=== PATIENT | female | born 1990 | race African-American/Black ===

== ENCOUNTER → 2016-08-07 09:22 | Outpatient (CLI) | payer MEDICAID ==
[2011-05-18 13:38] VITALS: BMI 36.6
== END | disposition home or self-care (01) ==
LOC: D.LAB 09:22
DX: O20.0 Threatened abortion (principal)

== ENCOUNTER 2017-03-31 06:51 | Inpatient (IN) | payer MEDICAID ==
[~2017-03-31] VITALS: Ht 154.9 cm; Wt 105.2 kg
[2017-03-31] VITALS (10 sets, daily range): BP systolic 82–134; BP diastolic 45–80; Ht 154.9 cm; Wt 105.2 kg
--- NOTE | ~2017-03-31 | DS ---
PATIENT:THOMAS GUTIERREZ :89 MEDICAL RECORD: [id number] DISCHARGE SUMMARY ADMISSION DATE: 03/31/17 DISCHARGE DATE: DATE OF ADMISSION: 03/31/2017 DATE OF DISCHARGE: 04/02/2017 ADMISSION DIAGNOSIS: undelivered at term with prior section. DISCHARGE DIAGNOSIS: Mother delivered at term. PROCEDURE: Repeat low transverse section. PRIMARY PHYSICIAN: Sarah Armenta MD DISCHARGING PHYSICIAN: Edna Andrews MD HISTORY OF PRESENT ILLNESS: See the H&P in [facility]. SUMMARY OF HOSPITALIZATION: The patient was admitted to the hospital, underwent section without difficulty. On and postop day 2, the patient is tolerating a regular diet, voiding without difficulty. The patient is ambulating without difficulties. The patient is . Discharge medications for pain will include ibuprofen, and Demerol. The patient will be followed up in 2 weeks by the primary surgeon. Standard postoperative and precautions have been reviewed. TRANSINT:[id number] Voice Confirmation ID: [id number] DOCUMENT ID: [id number] EDNA ANDREWS MD CC: [id number] DICTATION DATE: 04/02/1735 GRAPHIC ILLUSTRATOR: 04/02/17 0804 ADM IN [facility] [address] [place] [address]
[2017-03-31] MEDS ORDERED: NOVOLIN R100 U/ML SQ (07:16)
[2017-03-31 07:45] LABS: HEMATOCRIT 36.9 % (36.0-48.0); HEMOGLOBIN 12.3 g/dL (12-16); MCH 29.3 pg (26.0-34.0); MCHC 33.3 g/dL (31.0-37.0); MCV 87.9 fL (80.0-100.0); RDW 13.7 % (11.5-14.5)
[2017-03-31 07:55] LABS: PLATELET COUNT 136 10x3/uL (130-400)
--- NOTE | 2017-03-31 08:20 | NUR ---
BUMP UNDER RIGHT HIP. BABY GIRL BORN VIA CSECTION AT 0805.
--- NOTE | 2017-03-31 09:00 | NUR ---
FUNDUS IS MINDLINE UMBILICUS AND FIRM.
--- NOTE | 2017-03-31 09:10 | NUR ---
POST OP ORDERS RECEIVED FROM DR LEDEZMA. NO INTERMODAL DISPATCHER ORDERS IN SYSTEM. DR LEDEZMA ON L&D VERBAL ORDERS RECEIVED FOR DEMEROL INTERMODAL DISPATCHER 50 MG BOLUS X 1 THEN 10 MG Q 10 MINS PRN PER INTERMODAL DISPATCHER. PT STILL IN RECOVERY ROOM.
--- NOTE | 2017-03-31 09:25 | NUR ---
RECEIVED PT FROM RECOVERY ROOM. ALERT AND ORIENTED. SKIN WARM AND DRY, LUNGS CLEAR. IV NS WITH 20 UNITS PITOCIN INFUSING INTO RIGHT HAND. SALINE LOCK PRESENT IN LEFT HAND. U/U FIRM MIDLINE, RUBRA SCANT, STERISTRIPS IN PLACE OVER INCISION- CLEAN AND DRY. SMALL SUPERFICIAL LESION APPR 2CM X 1 CM NOTED TO RIGHT OF INCISION LOWER ABDOMEN. RR RN STATES IT WAS COVERED WITH DERMOBOND PER MD IN OR. MIREILLE-PAD PLACE BETWEEN INCISION AND LOW ABD. RODRIGES DRAINING DARK YELLOW URINE. ANCHORED TO RIGHT UPPER THIGH AT THIS TIME. SCD'S IN PLACE AND PLACE ON PUMP, PUMP ON. NO EDEMA, NEG HOMANS, REFLEX WNL, MOVING LE SLOWLY. ICE PACK PLACED OVER GOWN OVER LTCS INCISION. EATING ICE CHIPS WITHOUT DIFFICULY. + BS X 4. DENIES NAUSEA. 8/10 ACHING ON PAIN SCALE. INSTRUCTED THAT DEMEROL BIOMEDICAL ENGINEERING DIRECTOR WILL BE INITIATED FOR HER TO ADMINISTER HER OWN PAIN MEDICATION. VERBALIZED UNDERSTANDING. PLANS TO BREASTFEED. SIDE RAILS UP X 2, CALL LIGHT IN REACH.
--- NOTE | 2017-03-31 09:37 | NUR ---
DEMEROL BRASS PICKLER INITIATED. PT INSTRUCTED ON USE AND GIVEN BRASS PICKLER CONTROLLER. INSTRUCTED THAT ONLY SHE MAY PUSH THE BUTTON. VERBALIZED UNDERSTANDING. INSTRUCTED ON INCENTIVE SPIROMETER AND USED X 3 WITH MOD NON-PRODUCTIVE COUGH. SIDE RAILS UP, CALL LIGHT AND BRASS PICKLER CONTROLLER PLACED IN REACH. VISITORS IN ROOM. INFANT IN NURSERY.
--- NOTE | 2017-03-31 09:45 | NUR ---
U/U FIRM RUBRA SMALL. LEMON RAMPART DRINK AND FRESH WATER GIVEN. C/O THROAT FEELING DRY. DISCUSSED CAUSE AND RELIEF MEASURES. ENCOURAGED SMALL SIPS TO DECREASE CHANCE OF N&V.
--- NOTE | 2017-03-31 09:59 | NUR ---
ADMISSION HISTORY COMPLETED WITHOUT DIFFICULTY. PT SAYS SHE RECEIVED TDAP "THE SHOT WITH WHOOPING COUGH" DURING "THIS MONTH". U/U FIRM MARK SMALL, PERIPAD X 1 CHANGED.
--- NOTE | 2017-03-31 10:20 | NUR ---
U/U FIRM, MARK JOY. SAYS HER PAIN IS IMPROVED NOW 7/10 ON PAIN SCALE. DISCUSSED TORADOL TO ASSIST WITH PAIN.
--- NOTE | 2017-03-31 10:33 | NUR ---
TORADOL 30 MG GIVEN IVP FOR RELIEF OF 7/10 INCISIONAL PAIN. STATES "I NEED A NAP". LIGHTS TURNED ON LOW. ENCOURAGED TO REST AT THIS TIME. SIDE RAILS UP X 2, CALL LIGHT IN REACH AND PHYSICAL THERAPY AIDE IN REACH. VISITORS AT BEDSIDE.
--- NOTE | 2017-03-31 11:30 | NUR ---
SITTING UP IN BED WITH SLEEPING INFANT IN ARMS. SAYS HER PAIN IS IMPROVED NOW /. NO CURRENT VAGINAL BLEEDING, RODRIGES DRAINING, IV PATENT. WAITING ON CLEAR LIQUID DIET TRAY. VISITOR X 1 IN ROOM. FLANGE MACHINE OPERATOR NOT USED WITHIN LAST HOUR. SIDE RAILS UP X 2, CALL LIGHT AND FLANGE MACHINE OPERATOR WITHIN REACH. TO CALL IF ANYTHING IS NEEDED.
--- NOTE | 2017-03-31 13:37 | NUR ---
SITTING UP IN BED. NURSERY, RN IN ROOM ASSISTING WITH . NO REQUESTS AT THIS TIME.
--- NOTE | 2017-03-31 13:56 | NUR ---
INCENTIVE SPIROMETER X 3, POSITIONED TO RIGHT SIDE RUBRA SMALL, CLEAN MIREILLE-PADS X 2 ON. RODRIGES DRAINING, IV PATENT. ASSISTED TO PUT NURSING BRA ON, NURSERY RN BACK IN ROOM WITH INFANT TO ASSIST WITH . SIDE RAILS UP X 2, CALL LIGHT AND ARABIC LINGUIST CONTROLLER IN REACH. FRESH ICE WATER GIVEN. VISITORS IN ROOM.
--- NOTE | 2017-03-31 15:05 | NUR ---
DR ANDREWS WAS ON L&D V.O. RECEIVED. POSITIONED PT TO HIGHFOWLERS FOR COMFORT. JELLO AND FRESH WATER GIVEN. VISITORS AND INFANT IN ROOM. CALL LIGHT AND TIRE MECHANIC CONTROLLER IN REACH. DENIES NEEDING ANYTHING ELSE AT THIS TIME. ALERT AND NON-DROWSY. SCDS IN PLACE AND OPERATING. IV PATENT AND RODRIGES DRAINING. U/1 FIRM MIDLINE.
--- NOTE | 2017-03-31 16:00 | NUR ---
SITTING UP IN BED. ASSISTED TO POSITION TO LEFT SIDE. INCENTIVE SPIROMENTER USED X 3. AND VISITORS IN ROOM. FRESH WATER GIVEN. NO ADDITIONAL REQUESTS. SIDERAILS UP X 2, CALL LIGHT AND FUR PLUCKER IN REACH. INFANT AND VISITORS IN ROOM. ICE PACK IN PLACE, SCD'S ON AND WORKING. IV PATENT, ZAHIRA PATENT.
--- NOTE | 2017-03-31 17:11 | NUR ---
SITTING UP IN BED NURSERY RN AT BEDSIDE ASSISTING WITH . NO REQUESTS AT PRESENT.
--- NOTE | 2017-03-31 18:15 | NUR ---
SITTING UP IN BED. INCENTIVE SPIROMETER X 3 USED WITH MOD COUGH, NONPRODUCTIVE. ENCOURAGED TO CONTINUE PO HYDRATION. PERICARE WITH WARM WASHCLOTH. CLEAN CHUX AND PERIPAD X 2 ON. U/1 FIRM MIDLINE, RUBRA SMALL TO MOD ON PAD. NO CLOTS. RODRIGES DRAINING, IV PATENT NS WITH 20 U PITOCIN AT 125 ML/HR. SAYS HER PAIN HAS BEEN AVERAGING ABOUT A 3. "IT GOES UP TO A THREE WHEN I MOVE." FRESH ICE PACK TO ABDOMEN, CUP OF ICE GIVEN PER REQUEST. FOB, VISITORS AND INFANT IN ROOM. SIDE RAILS UP X 2, CALL LIGHT AND MANAGER FILM IN REACH. PT AWARE THAT IV/RODRIGES/MANAGER FILM WILL BE DC'D AT APPROX 1999. ENCOURAGED TO SHOWER THIS PM. VERBALIZED UNDERSTANDING.
--- NOTE | 2017-03-31 19:10 | NUR ---
PT. AWAKE AND ORIENTED. FOB AND CHILD IN ROOM. SKIN WARM AND DRY. BREATH SOUNDS CLEAR AND BOWEL SOUNDS AUDIBLE. IV INFUSING IN RT. HAND AT 125CC/HR. IV SALINE LOCK NOTED IN LT HAND. ABD.INCISION CLEAN AND DRY. LOCHIA RUBRA SCANT TO MOD. SCDS ON AND FUNCTIONAL. RODRIGES PATENT AND DRAINING. POC DISCUSSED WITH PT. PT. STATES UNDERSTANDING. AIRPLANE MECHANIC AT BEDSIDE FOR USE. PT. FILLING OUT PAPERWORK FOR NBN. PT. WITH QUESTIONS AND WOULD LIKE TO TALK WITH MEDICAL RECORDS. INFORMED THIS NURSE THAT HER LEGAL NAME IS "ANDRZEJ" AND SHE DESIRES THE INFANT'S LAST NAME TO BE SAME. INFORMED WOULD CONTACT MEDICAL RECORDS FOR ANSWERS TO HER QUESTIONS.
--- NOTE | 2017-03-31 19:35 | NUR ---
ALYSSA MENESES, DIRECTOR OF HEALTH INFORMATION MANAGEMENT CALLED UNIT AND INFORMED OF PT. QUESTIONS. MS. MENESES STATES THAT PT. SHOULD RESIGN CONSENTS WITH HER LEGAL NAME OF "ANDRZEJ" AND ALSO DATE ENTRY FOR DATE THAT SHE SIGNED. TRANSFERRED Arabella MENESES INTO PT. ROOM TO ANSWER PT. QUESTIONS.
--- NOTE | 2017-03-31 19:45 | NUR ---
ADDITIONAL CERTIFICATE PAPERS TAKEN TO PT. REQUESTED. PT. REPORTS THAT Arabella MENESES HAD ANSWERED ALL HER QUESTIONS. VISITORS AT BEDSIDE. INFANT BACK TO NURSERY PER NURSERY STAFF.
--- NOTE | 2017-03-31 20:30 | NUR ---
IVF dc'd. IV to R hand dc'd with tip intact. Bandage applied to site. Ramos cath dc'd with tip intact. Apprx 300 ml clear yellow urine emptied from ramos bag. Pt tolerated well. Explained to pt to call when she feels the urge to void so nurse can assist OOB to bathroom. Pt verbalizes understanding. No other questions voiced. Family in room. C/L in reach. Bed low. SR upx2.
--- NOTE | 2017-03-31 21:25 | NUR ---
ATTEMPTING TO BREASTFEED WITH THE ASSISTANCE OF NURSERY NURSE. FAMILY IN ROOM WITH PT. AND SMALL CHILD. HOB ELEVATED 45 DEGREES.
--- NOTE | 2017-03-31 22:00 | NUR ---
PT. REPORTS URGE TO VOID. UP TO BATHROOM WITH MINIMAL ASSISTANCE. VOIDED 500CC. MIREILLE PADS AND PANTIES APPLIED. BACK TO SIT ON SIDE OF BED AWAITING TRANSFER TO [facility]. INCENTIVE SPIROMETER USED AND ABLE TO ACCOMPLISH UP TO 1500. 3-4 ATTEMPTS MADE. LOCHIA MAGDYRA MOD. AMBULATED WITH STEADY GAIT.
--- NOTE | 2017-03-31 22:20 | NUR ---
TO 1257 VIA WHEELCHAIR FROM 1278. ORIENTED TO ROOM, CALL SYSTEM, BED CONTROLS AND THERMOSTAT. SIDE RAILS UP X 2. CALL LIGHT WITHIN REACH. SCDS REAPPLIED AND PUMP ON AND FUNCTIONAL. NBN STAFF IN ROOM TO ASSIST WITH . FOB, PT'S MOTHER AND PT'S SON IN ROOM AT PRESENT.
--- NOTE | 2017-03-31 22:25 | NUR ---
PT. INSTRUCTED TO CALL FOR ASSISTANCE NEXT TIME SHE NEEDED UP TO BATHROOM. PT. STATED UNDERSTANDING.
--- NOTE | 2017-03-31 22:55 | NUR ---
PT. C/O INCISIONAL PAIN THAT SHE RATES A 4 OF 10 ON PAIN SCALE. MED GIVEN ORDERED. PT. ON IPAD AND WATCHING TV. SON REMAINS ACTIVE AND LOUD. ABD. INCISION NOTED WITH STERI STRIPS CLEAN AND DRY. ICE CAP ON ABD. INCISIONAL AREA. VITAL SIGNS OBTAINED.
--- NOTE | 2017-03-31 23:42 | NUR ---
PT. LYING ON RT SIDE WITH EYES CLOSED. DID NOT AROUSE TO THIS NURSE OPENING DOOR. FOB WATCHING TV ON SOFA.
--- NOTE | 2017-04-01 00:10 | NUR ---
PT. STATES SHE AWAKENED WITH PAIN AND URGE TO VOID. MINIMAL ASSISTANCE NEEDED FOR PT. TO GET OUT OF BED AND AMBULATE TO BATHROOM. VOIDED 300CC ON [place] HAT. MIREILLE PADS REAPPLIED. BACK TO BED. PT. RELATES THAT VOIDING DID MAKE HER ABD. "FEEL BETTER". SON ASLEEP IN CHAIR AND FOB LYING ON SOFA LOOKING AT TABLET. SCDS REAPPLIED TO PT. LOWER LEGS AND PUMP FUNCTIONAL.
--- NOTE | 2017-04-01 02:15 | NUR ---
PT. AWAKENED FOR TO BREASTFEED.
[2017-04-01 02:30] VITALS: BP 130/74
--- NOTE | 2017-04-01 02:30 | NUR ---
Pt called nurse to room. Reports urge to void and c/o cramping at "5/10". VS obtained and pt assisted up to bathroom with slow steady gait. Ambulated well. Denies dizziness. Voided large amount without difficulty. Scant amount of lochia noted. Leeann pads changed. Pt washed hands and ambulated back into bed. Tolerated well. SCDs removed. Fresh ice pack provided per request. C/L in reach. Bed low. SR upx2. No other needs voiced.
--- NOTE | 2017-04-01 02:43 | NUR ---
PAIN MED GIVEN FOR PAIN SCORE OF 5 OF 10 FOR INCISIONAL PAIN. AT PRESENT WITH ASSISTANCE FROM NBN STAFF. FOB SNORING LOUDLY ON SOFA.
--- NOTE | 2017-04-01 03:25 | NUR ---
LYING ON BACK WITH EYES CLOSED AND RESPIRATIONS REGULAR. FOB CONTINUES TO SLEEP ON SOFA SNORING LOUDLY.
--- NOTE | 2017-04-01 05:08 | NUR ---
UP TO BATHROOM AND VOIDED. MINIMAL ASSISTANCE NEEDED. BACK TO BED AND SCD SLEEVES RECONNECTED TO PUMP AND FUNCTIONAL. STEADY GAIT NOTED.
[2017-04-01 06:13] LABS: RAPID PLASMA REAGIN Non Reactive (Non Reactive)
[2017-04-01 06:24] LABS: HEMATOCRIT 30.2 % (36.0-48.0); MCH 29.8 pg (26.0-34.0); MCHC 33.1 g/dL (31.0-37.0); MEAN PLATELET VOLUME 13.2 fL (7.4-10.4); RBC 3.36 10x6/uL (4.00-5.40); RDW 13.7 % (11.5-14.5); WBC 7.1 10x3/uL (4.8-10.8)
[2017-04-01 06:28] LABS: MCV 89.9 fL (80.0-100.0)
[2017-04-01 07:05] VITALS: BP 127/75
--- NOTE | 2017-04-01 07:05 | NUR ---
ASSUME CARE OF THIS PATIENT. NEEDS TO VOID. SCD'S REMOVED, UP TO BATHROOM PER SELF, VOIDED WITHOUT DIFF, NO LOCHIA ON PAD. RETURNED TO BED. SHIFT ASSESSMENT COMPLETED. TO RIGHT BREAST AFTER ASSESSMENT. DENIES NEEDING ANYTHING FOR PAIN. SCD'S OFF AT THIS TIME SINCE PT IS UP AD SHASHI TO BATHROOM AND TO AMBULATE. INSTRUCTED WILL REPLACE IF SHE PLANS TO STAY IN BED FOR PROLONG PERIODS. DENIES NEEDING ANYTHING FOR PAIN AT THIS TIME. 4/10 INTERMITTENT CRAMPING. MIREILLE-PAD PLACED OVER INCISION OF LOWER ABDOMEN. INSTRUCTED ON PURPOSE AND TO CHANGE WITH EACH VOID. FOB AND SIBLING ASLEEP IN ROOM. SIDERAILS UP X 2, CALL LIGHT IN REACH. TO CALL IF ANYTHING IS NEEDED. BLOOD TYPE- A NEG: BLOOD TYPE- B NEG
--- NOTE | 2017-04-01 08:50 | NUR ---
SITTING UP IN BED, FRESH ICE AND WATER GIVEN. REQUESTED SOMETHING FOR CRAMPS.
--- NOTE | 2017-04-01 08:58 | NUR ---
RETURNED FROM BATHROOM AFTER VOIDING. MOTRIN 600 MG GIVEN PO AFTER DISCUSSING PAIN MEDICATION OPTIONS. VISITORS AND IN ROOM. GETTING READY TO EAT FOOD BROUGHT IN BY VISITOR. PLAN SHOWER, LINEN CHANGE, AMBULATION NEXT TIME OOB TO VOID. VERBALIZED UNDERSTANDING. SIDE RAILS UP X 2, CALL LIGHT IN REACH.
--- NOTE | 2017-04-01 09:05 | NUR ---
DECLINES NICODERM PATCH, PT IS NONSMOKER.
--- NOTE | 2017-04-01 09:46 | NUR ---
SAYS HER CRAMPING IS GETTING BETTER STATES "I MIGHT FEEL BETTER WHEN I TAKE A SHOWER". DENIES NEEDING ADDITIONAL PAIN MEDICATION AT THIS TIME. TO CALL WHEN READY FOR A SHOWER. CALL LIGHT IN REACH. VISITOR AND INFANT IN ROOM.
--- NOTE | 2017-04-01 09:51 | NUR ---
DR ANDREWS TO ROOM TO VISIT PATIENT.
--- NOTE | 2017-04-01 10:30 | NUR ---
UP TO SHOWER.INSTRUCTED ON CARE AND CLEANING OF INCISION SITE. ALONG WITH REMOVAL OF STERISTRIPS AFTER 7 DAYS. LINENS CHANGED.
--- NOTE | 2017-04-01 10:50 | NUR ---
AMBULATED AROUND AND BACK TO ROOM. TOLERATED WELL. ENCOURAGED TO BE OUT OF BED MUCH TOLERATED AND TO WALK PRN. SCD'S NOT PLACED AT THIS TIME DUE TO UP AD SHASHI STATUS. VISITORS AND FAMILY IN ROOM. GETTING READY TO BREASTFEED INFANT.
--- NOTE | 2017-04-01 11:05 | NUR ---
REQUESTED SALINE LOCK BE DC'D. REMOVED SALINE LOCK WITH TIP INTACT. NO BLEEDING AT SITE. TO CALL IF ANYTHING IS NEEDED.
[2017-04-01 11:06] VITALS: BP 127/78
--- NOTE | 2017-04-01 12:09 | NUR ---
SITTING UP IN BED WITH INFANT IN ARMS. REQUESTED GUEST TRAY FOR SPOUSE. REGULAR ONE TIME TRAY ORDERED. EXPLAINED TO PT AND SPOUSE THAT THEY CAN RECEIVE A FREE GUEST TRAY X 1 SINCE SHE DELIVERED. NO ADDITIONAL REQUESTS AT THIS TIME.
--- NOTE | 2017-04-01 14:06 | NUR ---
ROUNDS MADE, SAYS SHE JUST WOKE UP. "I'M A LITTLE SORE" DENIES NEEDING ANYTHING FOR PAIN. STATES "I'M GOING TO GET UP NOW AND GO TO THE BATHROOM." FOB AND IN ROOM. TO CALL IF ANYTHING IS NEEDED. VERBALIZED UNDERSTANDING.
--- NOTE | 2017-04-01 14:59 | NUR ---
REQUESTED PAIN MEDICATION FOR 5/10 LOW BACK STABBING PAIN. DISCUSSED POSSIBLE CAUSES, PAIN MANAGEMENT AND RELIEF MEASURES. ENCOURAGED AMBULATION, STRETCHING, WARM SHOWER. HAS NOT PASSED GAS YES, DISCUSSED METHODS TO PROMOTE THIS. TO NURSERY. NO ADDITIONAL REQUESTS AT THIS TIME. SIDE RAILS UP X 2, CALL LIGHT IN REACH. INSTRUCTED PT THAT MEDICATION MAY CAUSE DROWSINESS, ENCOURAGED TO REST IF THIS OCCURS.
[2017-04-01 16:15] VITALS: BP 123/80
--- NOTE | 2017-04-01 16:25 | NUR ---
SITTING UP IN BED. SAYS SHE WALKED AROUND OUTSIDE OF THE UNIT. PAIN 2/10 AT THIS TIME. DISCUSSED VS BOTTLEFEEDING IN REGARD TO BABY DIGESTION AND POTENTIAL PREFERANCE FOR BOTTLE VS BREAST. SAYS SHE USED PUMP WITH LAST CHILD. INFORMED THAT NURSERY CAN LEND HER A PUMP AND SHE CAN TRY BUT THAT IT MAY NOT HELP TO STIM BREAST MILK FLOW SUCK IS BEST. VERBALIZED UNDERSTANDING AND WOULD LIKE TO TRY. Virgil SARAVIA RN NURSERY NOTIFIED. SIDE RAILS UP X 2. CALL LIGHT IN REACH. DENIES NEEDING ANYTHING FURTHER. FOB AND IN ROOM.
--- NOTE | 2017-04-01 18:15 | NUR ---
AMBULATING IN ROOM WITH INFANT. DENIES NEEDING ANYTHING AT THIS TIME. INFORMED THAT IS RH NEG SO SHE DOES NOT NEED RHOGAM. RUBELLA NON-IMMUNE. RECEIVED TDAP AT END OF PER PT STATEMENT. WILL DISCUSS MMR TOMORROW. TO CALL IF ANYTHING IS NEEDED.
--- NOTE | 2017-04-01 20:00 | NUR ---
CONTINUES TO BREASTFEED. PT. REQUESTING IBUPROFEN FOR ABD. CRAMPING.
--- NOTE | 2017-04-01 20:14 | NUR ---
IBUPROFEN 600MG GIVEN REQUESTED FOR PAIN SCORE OF 6 OF 10 ON PAIN SCALE. EXPLAINED TO PT. ABOUT CRAMPING WHEN . PT. STATES VERBAL UNDERSTANDING. PT. PUMPING BREAST WITH ELECTRIC PUMP AT [facility]. HOLDING AT PRESENT.
[2017-04-01 20:45] VITALS: BP 135/78
--- NOTE | 2017-04-01 20:45 | NUR ---
PT. LYING IN BED HOLDING . HAS COMPLETED PUMPING AND FEEDING. STATES PAIN MED HAS HELPED AND RATES PAIN A 4 OF 10 ON PAIN SCALE. ABD. INCISION WITHOUT DRAINAGE OR REDNESS. MIREILLE PAD NOTED AGAINST ABD. INCISION TO WICK MOISTURE. PT. DENIES PAIN IN LOWER EXTREMITIES. BREATH SOUNDS CLEAR AND BOWEL SOUNDS AUDIBLE. PT. STATES SHE HAS NOT PASSES FLATUS AT THIS TIME. STATES SHE HAS WALKED TO DAY AND WILL WALK AGAIN PRIOR TO GOING TO BED FOR THE NIGHT. STEVE FLORES SCANT. DENIES ANY NEEDS AT THIS TIME.
--- NOTE | 2017-04-01 22:43 | NUR ---
VISITORS IN ROOM AT PRESENT. . DENIES ANY NEEDS.
--- NOTE | 2017-04-01 23:30 | NUR ---
WALKING TO BED FROM BATHROOM. GAIT STEADY. DENIES ANY NEEDS.
--- NOTE | 2017-04-02 01:40 | NUR ---
HOLDING . VISITOR IN ROOM ALONG WITH FOB. PT. DENIES ANY NEEDS.
[2017-04-02 01:45] VITALS: BP 130/83
--- NOTE | 2017-04-02 03:20 | NUR ---
LYING IN BED WITH EYES CLOSED, HOLDING INFANT. PT. AWAKENED AND INFORMED THAT WAS BEING TAKEN TO NBN PER NURSERY STAFF. PT. STATES UNDERSTANDING AND REQUEST INFANT BE KEPT IN NURSERY AND BE FED PUMPED BREAST MILK IF NEEDED.
--- NOTE | 2017-04-02 05:30 | NUR ---
LYING ON BACK WITH EYES CLOSED. RESPIRATIONS REGULAR. FOB LYING ON SOFA SNORING LOUDLY.
[2017-04-02 07:08] VITALS: BP 137/78
--- NOTE | 2017-04-02 07:13 | NUR ---
ASSUMED CARE OF THIS PATIENT. SITTING UP IN BED HOLDING INFANT. SHIFT ASSESSMENT COMPLETED. LTCS INCISION INTACT WITH STERI-STRIPS. HAS BEEN , PUMPING AND PERIODICALLY BOTTLEFEEDING. 2/10 INTERMITTENT CRAMPING, WORSE WITH . DISCUSSED RUBELLA STATUS, WOULD LIKE MMR PRIOR TO DC. NO REQUESTS AT THIS TIME. READY TO GO HOME. FOB AND SIBLING ASLEEP IN ROOM. ANTICIPATE DC HOME TODAY.
[2017-04-02] MEDS ORDERED: MEPERIDINE HCL50 MG PO (07:41)
[2017-04-02] MEDS ORDERED: IBUPROFEN600 MG PO (07:41)
--- NOTE | 2017-04-02 08:11 | NUR ---
REQUESTED PAIN MEDICATION FOR 4/10 CRAMPING. MOTRIN 600 MG GIVEN PO. IN ARMS. DENIES NEEDING ANYTHING ELSE. SIDE RAILS UP X 2, CALL LIGHT IN REACH. VISITORS X 2 IN ROOM. INFANT IN ARMS.
--- NOTE | 2017-04-02 08:31 | NUR ---
AMBULATING IN ROOM. MMR GIVEN SQ IN UPPER LEFT POST ARM WITHOUT DIFFICULTY. DENIES NEEDING ANYTHING.
--- NOTE | 2017-04-02 08:33 | NUR ---
REMINDED PT PRIOR TO VACCINE THAT IT IS A LIVE VACCINE AND SHE SHOULD NOT GET WITHIN NEXT THREE MONTHS. ALSO INFORMED SHE SHOULD NOT HAVE INTERCOURSE UNTIL CLEARED BY HER MD AND DISCUSS BC OPTIONS WITH HER PHYSICIAN. VERBALIZED UNDERSTANDING.
--- NOTE | 2017-04-02 09:13 | NUR ---
SITTING UP IN CHAIR PUMPING. DENIES NEEDING ANYTHING. READY TO GO HOME. WAITING ON ELECTRO MECHANIC FOR DC. VISITORS X 2 IN ROOM.
--- NOTE | 2017-04-02 12:20 | NUR ---
SITTING UP ON COUCH WITH FOB AND . VERBAL AND WRITTEN DC TEACHING COMPLETED TO INCLUDE POST-OP CARE, PP DEPRESSION, S&S INFECTION, /BREAST CARE, COMMUNITY RESOURCES, MEDICATION ADMINISTRATION, CAR SAFETY, AND FOLLOW-UP. VERBALIZED UNDERSTANDING. NO QUESTIONS ASKED. PLAN DC WHEN DC'D. ARTILLERY OFFICER JUST ARRIVED IN ROOM.
--- NOTE | 2017-04-02 13:11 | NUR ---
DC'D WITH INFANT VIA WHEELCHAIR TO CAR. ALL BELONGINGS REMOVED FROM ROOM BY FAMILY. HAS DC INSTRUCTIONS AND PRESCRIPTIONS.
== END 2017-04-02 13:11 | disposition home or self-care (01) | DRG 766 ==
LOC: D.LDO 06:51 → D.LD 07:21
PROVIDERS: ADMIT Obstetrics & Gynecology
PROC: 10D00Z1 Extraction of Products of Conception, Low, Open Approach (ICD-10-PCS; principal; 2017-03-31 07:30)
DX: O34.219 Maternal care for unspecified type scar from previous cesarean delivery (principal); Z3A.38 38 weeks gestation of pregnancy; Z37.0 Single live birth